=== PATIENT | male | born 1955 | race Caucasian/White ===

== ENCOUNTER 2021-06-07 11:58 | Outpatient (CLI) | payer MEDICARE | END 2021-06-07 11:59 | disposition home or self-care (01) | LOC: MRI 11:58 | PROVIDERS: ATTEND Registered Nurse | DX: M19.011 Primary osteoarthritis, right shoulder (principal); M75.111 Incomplete rotator cuff tear or rupture of right shoulder, not specified as traumatic; S43.431A Superior glenoid labrum lesion of right shoulder, initial encounter; M25.811 Other specified joint disorders, right shoulder ==